=== PATIENT | female | born 1975 | race Caucasian/White ===

== ENCOUNTER 2016-11-18 16:17 | Observation (INO) | payer OTHER ==
[2016-11-18] MEDS ORDERED: FENTANYL 100 MCG/2 ML VIAL ONE (16:48)
[2016-11-18] MEDS ORDERED: KETOROLAC TROMETHAMINE 30 MG/ML VIAL ONE ×2 (16:53→19:58)
[2016-11-18] MEDS ORDERED: ONDANSETRON HCL 4 MG/2 ML VIAL ONE (16:54)
[2016-11-18] MEDS ORDERED: HOME MEDICATION LIST NEEDED 1 EA EACH MC ONE (17:44)
[2016-11-18] MEDS ORDERED: ONDANSETRON HCL 4 MG/2 ML VIAL IV PRN (17:48)
[2016-11-18] MEDS ORDERED: METHYLPREDNISOLONE SOD 125 MG/2 ML VIAL ONE (17:52)
[2016-11-18] MEDS ORDERED: NORMAL SALINE 100 ML IV ONE (17:53)
--- NOTE | 2016-11-18 19:34 | ER NURSING DOCUMENTATION ---
Nurse's Notes [facility] Name:Anika Arcos Age:41 yrs Sex:Female :1975 Arrival Date:11/18/2016 Time:16:17 Bed6 Private MD: Diagnosis:Lumbar Radiculopathy-: L-5 / S-1 Level;Lower Extremity Pain;Dehydration Presentation: 11/18 16:24 Presenting complaint: Patient states: Pt is here visiting from [place] and over did it rh with the activity this weekend - hiking. Pt aggravated her herniated discs and know has sharp pain shooting down the right leg and numbness. Transition of care: Home. 16:24 Acuity: MARTHA 3 rh 16:24 Method Of Arrival: EMS: 400 rh 16:35 Care prior to arrival: IV initiated. gauge and site 20 G IN THE LEFT HAND Medication(s) rh given: Fentanyl 100MCG. Triage Assessment: 16:32 General: Appears in no apparent distress, Behavior is cooperative. Pain: Complains of rh pain in lumbar area and right leg. EENT: Oral mucosa is dry. Neuro: Level of Consciousness is awake, alert, obeys commands, Oriented to person, place, time, event. Cardiovascular: Capillary refill < 3 seconds Chest pain is denied. Respiratory: Airway is patent. GI: Abdomen is non- distended Denies nausea. : No deficits noted. Derm: Skin is intact, is healthy with good turgor, Skin is pink, warm & dry. Musculoskeletal: Circulation, motion, and sensation intact Capillary refill < 3 seconds Reports numbness in right leg. Historical: - Allergies: No known drug Allergies; - Home Meds: 1. gabapentin 300 mg oral cap 1 cap twice daily 2. verapamil 100 mg oral CPCT 1 cap once daily at bedtime 3. losartan 100 mg oral tab 1 tab once daily 4. methocarbamol 500 mg oral tab 2 tabs 3 times per day 5. tizanidine 2 mg oral tab 2 tabs every 6-8 hours as needed not to exceed 3 doses in 24 hours 6. acetaminophen-codeine 300-30 mg oral tab 1 tab every 6 hours as needed 7. Methylprednisolone Oral - PMHx: CAROTID ANUERISM; L5-S1 HERNIATED DISC; - PSHx: None; - Tetanus: < 10 years. - Ebola Screening: : Patient negative for fever greater than or equal to 101.5 degrees Fahrenheit, and additional compatible Ebola Virus Disease symptoms. - Immunization history: Flu Vaccine < 1 year. - Social history: Smoking status: Patient states was never smoker of tobacco. Screenin:34 Infectious Disease Risk None. Abuse screen: Denies threats or abuse. Denies injuries rh from another. Nutritional screening: No deficits noted. Assessment: 16:34 See Triage Assessment done by same RN. rh 17:30 Reassessment: Patient states feeling better. Patient states symptoms have improved. lc REPOSITIONED IN BED, NO C/O, VSS, RESTING COMFORTABLY.. 17:50 Reassessment: DECISION MADE FOR ADMIT, DINNER ORDERED, WAITING FOR ROOM ASSIGNMENT. Vital Signs: 16:33 BP 116 / 79; Pulse 70; Resp 15; Temp 97.9(O); Pulse Ox 88% on R/A; Weight 70.31 kg; rh Height 5 ft. 6 in. (167.64 cm); Pain 5/10; 16:34 Pulse 68; Resp 15; Pulse Ox 96% on 2 lpm NC; rh 17:15 Pulse 52; Resp 16; Pulse Ox 96% ; Pain 1/10; lc 17:49 BP 134 / 59; Pulse 68; Resp 16; Pulse Ox 93% ; Pain 2/10; lc 16:33 Body Mass Index 25.02 (70.31 kg, 167.64 cm) rh [place] Coma Score: 16:45 Eye Response: spontaneous(4). Verbal Response: oriented(5). Motor Response: obeys cd commands(6). Total: 15. ED Course: 16:18 Patient arrived in ED. cj 16:24 Sabrina Borja is Primary Nurse. rh 16:25 Notified ED Physician of patient's arrival and chief complaint. Dr. Gilmore notified. rh 16:27 Triage completed. rh 16:34 [address] pack to injury. st 16:34 Valuables Remains with patient Patient has correct armband on for positive rh identification. Bed in low position. Call light in reach. Side rails up X 1. Family accompanied patient. 16:34 Maintain field IV. Site clean & dry. Gauge & site: 20 G IN THE LEFT HAND. rh 16:35 Oxygen Oxygen administration via nasal cannula @ 2L/min. rh 16:42 Musa Gilmore MD is Attending Physician. cd 17:38 Winnie Hamilton MD is Admitting Physician. cd Administered Medications: 16:45 Drug: Zofran 4 mg; Route: IVP; Infused Over: 2 mins; Site: left hand; rh 19:30 Follow up: Response: Nausea is decreased lc 16:49 Drug: NS 0.9% 1000 ml; Route: IV; Rate: bolus; Site: left hand; rh 19:30 Follow up: IV Status: Completed infusion; IV Intake: 1000ml lc 16:49 Drug: Toradol 30 mg; Route: IVP; Site: left hand; rh 19:31 Follow up: Response: Nausea is decreased lc 16:50 Drug: Dilaudid 0.5 mg; Route: IVP; Site: left hand; rh 19:31 Follow up: Response: Pain is decreased lc 17:46 Drug: Solu-MEDROL 125 mg; Route: IVP; Rate: bolus; Infused Over: 15 mins; Site: left lc hand; 19:32 Follow up: Response: No adverse reaction lc Intake: 19:30 IV: 1000ml; Total: 1000ml. lc Outcome: 17:39 Decision to Admit by Provider. cd 19:30 Admitted to Med/surg accompanied by nurse, via stretcher, with oxygen, with chart. rh 19:30 Condition: stable 19:30 Instructed on need to admit 19:33 Patient left the ED. lc Signatures: Deb Lomeli, Loree Price RN, RN RN lc Daley, Chris, MD MD cd Hofsess, Rachel Ashwini Gonzalez
--- NOTE | 2016-11-18 19:34 | ER PHYSICIAN DOCUMENTATION ---
Physician Documentation [facility] Name:Anika rAcos Age:41 yrs Sex:Female :1975 Arrival Date:11/18/2016 Time:16:17 Bed6 Private MD: Musa Godinez Disposition: 11/18 17:45 Chart complete. cd Disposition: 11/18/16 17:39 Admit ordered for Winnie Hamilton. Preliminary diagnosis are Lumbar Radiculopathy - : L-5 / S-1 Level, Lower Extremity Pain, Dehydration. - Bed requested for Medical/Surgical. - Condition is Fair. - Problem is an acute exacerbation. - Symptoms have improved. 23 HR OBS Yes HPI: 16:30 This 41 yrs old Female presents to ER via EMS with complaints of Back Pain cd radiating down right leg with numbness.. 16:30 The patient presents with pain that is acute, and decreased range of motion. The cd symptoms are located in the lumbar area and right leg. Onset: The symptoms/episode began/occurred acutely, 2 day(s) ago. The pain radiates down the patient's right lower extremity. Associated signs and symptoms: Pertinent positives: numbness, tingling, Pertinent negatives: abdominal pain, chest pain, dysuria, fever, incontinence, urinary retention, vomiting, weakness. The problem was sustained at home, from a chronic condition, the patient has known disc disease, the patient has a L-5 / S1 Disc extrusion, as well as L-4 / L-5 Disc disease. She has had MRI's and is planning on surgery when she returns home to [place]. The patient reports that on Friday that walked around [place], then went to [facility]. She had a good time, but by the next day she knew she had overdone things. The patient had increasing pain in her low back and radiating into her right leg like she had had before. On Friday her [place] Physician called in a Medrol Dose pack for her. She has taken the first two days of a 6 day pack. She has also been taking Ibuprofen for pain, Gabapentin and Tylenol # 3 for pain.. Severity of symptoms: At their worst the symptoms were severe, in the emergency department the symptoms are unchanged. The risk factors for a herniated disc include: The patient has a history of a herniated disc in the past. The patient has experienced similar episodes in the past, and the symptoms today are exactly the same. Historical: - Allergies: No known drug Allergies; - Home Meds: 1. gabapentin 300 mg oral cap 1 cap twice daily 2. verapamil 100 mg oral CPCT 1 cap once daily at bedtime 3. losartan 100 mg oral tab 1 tab once daily 4. methocarbamol 500 mg oral tab 2 tabs 3 times per day 5. tizanidine 2 mg oral tab 2 tabs every 6-8 hours as needed not to exceed 3 doses in 24 hours 6. acetaminophen-codeine 300-30 mg oral tab 1 tab every 6 hours as needed 7. Methylprednisolone Oral - PMHx: CAROTID ANUERISM; L5-S1 HERNIATED DISC; - PSHx: None; - Tetanus: < 10 years. - Ebola Screening: : Patient negative for fever greater than or equal to 101.5 degrees Fahrenheit, and additional compatible Ebola Virus Disease symptoms. - Immunization history: Flu Vaccine < 1 year. - Social history: Smoking status: Patient states was never smoker of tobacco. ROS: 16:30 ENT: Negative for injury, pain, epistaxis and discharge. cd Neck: Negative for injury, pain, stiffness and swelling. Cardiovascular: Negative for chest pain, palpitations, edema and pleuritic pain. Respiratory: Negative for shortness of breath, dyspnea on exertion, cough, sputum production, wheezing, hemoptysis and pleuritic chest pain. Abdomen/GI: Negative for abdominal pain, nausea, vomiting, diarrhea, constipation, distension, melena, hematochezia and hematemesis. : Negative for injury, bleeding, discharge, dysuria, frequency, urgency and swelling. 16:30 Skin: Negative for injury, rash, itching and discoloration. cd 16:30 Constitutional: Positive for poor PO intake, Negative for chills, fever. 16:30 Back: Positive for decreased range of motion, pain at rest, pain with movement, of the lumbar area. 16:30 MS/extremity: Positive for pain, tingling, of the right leg. 16:30 Neuro: Positive for numbness, tingling, Negative for altered mental status, dizziness, headache, loss of consciousness, seizure activity, speech changes, syncope, visual changes. 16:30 All other systems are negative. Exam: Head/Face: Normocephalic, atraumatic. Eyes: Pupils equal round and reactive to light, extra-ocular motions intact. Lids and lashes normal. Conjunctiva and sclera are non-icteric and not injected. Cornea within normal limits. Periorbital areas with no swelling, redness, or edema. ENT: Nares patent. No nasal discharge, no septal abnormalities noted. Tympanic membranes are normal and external auditory canals are clear. Oropharynx with no redness, swelling, or masses, exudates, or evidence of obstruction, uvula midline. Mucous membranes moist. Neck: Trachea midline, no thyromegaly or masses palpated, and no cervical lymphadenopathy. Supple, full range of motion without nuchal rigidity, or vertebral point tenderness. No Meningismus. Chest/axilla: Normal chest wall appearance and motion. Nontender with no deformity. No lesions are appreciated. Cardiovascular: Regular rate and rhythm with a normal S1 and S2. No gallops, murmurs, or rubs. Normal PMI, no JVD. No pulse deficits. Respiratory: Lungs have equal breath sounds bilaterally, clear to auscultation and percussion. No rales, rhonchi or wheezes noted. No increased work of breathing, no retractions or nasal flaring. 16:45 Abdomen/GI: Soft, non-tender, with normal bowel sounds. No distension or tympany. No cd guarding or rebound. No evidence of tenderness throughout. 16:45 Constitutional: The patient appears alert, awake, non-diaphoretic, non-toxic, well developed, well nourished, anxious, in obvious distress, severely distressed. 16:45 Back: pain, that is severe, of the lumbar area, ROM is painful, decreased, normal spinal alignment noted, CVA tenderness, is absent, vertebral tenderness, is appreciated at L4, L5 and sacrum, Straight leg raises: right lower extremity illicits pain, at 15 degrees. 16:45 : CVA tenderness, noted bilaterally, Rectal exam: is not applicable. 16:45 Musculoskeletal/extremity: ROM: limited passive range of motion due to pain, in the right leg, Circulation is intact in all extremities. Sensation intact. 16:45 Skin: Exam negative for acute changes. 16:45 Neuro: Orientation: is normal, Mentation: is normal, Memory: is normal, Cranial nerves: CN II- XII are normal as tested, Motor: moves all fours, Sensation: numbness, that is mild, of the right ankle and lateral aspect of right foot, tingling, that is moderate, Gait: not tested. Vital Signs: 16:33 BP 116 / 79; Pulse 70; Resp 15; Temp 97.9(O); Pulse Ox 88% on R/A; Weight 70.31 kg; rh Height 5 ft. 6 in. (167.64 cm); Pain 5/10; 16:34 Pulse 68; Resp 15; Pulse Ox 96% on 2 lpm NC; rh 17:15 Pulse 52; Resp 16; Pulse Ox 96% ; Pain 1/10; lc 17:49 BP 134 / 59; Pulse 68; Resp 16; Pulse Ox 93% ; Pain 2/10; lc 16:33 Body Mass Index 25.02 (70.31 kg, 167.64 cm) rh [place]i Coma Score: 16:45 Eye Response: spontaneous(4). Verbal Response: oriented(5). Motor Response: obeys cd commands(6). Total: 15. MDM: 16:25 Data interpreted: Pulse oximetry: on room air is 93 %. Interpretation: normal. cd 16:36 Data reviewed: vital signs, nurses notes, old medical records, and as a result, I will cd admit patient, administer IV fluids, NS bolus, NS maintenence, prescribe pain medication, Dilaudid, Toradol. 16:42 Patient medically screened. cd 16:50 Differential diagnosis: ruptured disc, sprain, Lumbar Radiculopathy. cd 17:10 Response to treatment: the patient's symptoms have markedly improved after treatment, cd the patient's condition has returned to base line, and as a result, I will admit patient. Physician consultation: Winnie Hamilton MD was called at 17:10, was contacted at 17:20, regarding admission, to the floor, consult, patient's condition, need to come to ED to see patient, need to evaluate the patient as soon as possible, and will see patient in ED, shortly. Admission orders: after a detailed discussion of the patient's condition and case, the admit orders are written by me. 17:30 Counseling: I had a detailed discussion with the patient and/or guardian regarding: the cd historical points, exam findings, and any diagnostic results supporting the discharge/admit diagnosis, the need for further work-up and treatment in the hospital, risk of leaving the Emergency Department. 11/19 06:40 Order name: BASIC METABOLIC PANEL [facility] 11/19 10:03 Order name: CBC W/ MANUAL DIFFERENTIAL [facility] 11/19 12:04 Order name: HEPATIC PANEL [facility] 11/19 14:14 Order name: UA W/ MICRO -CULTURE IF IND [facility] 11/19 13:48 Order name: LUMBAR SPINE W/O [id number] [facility] 11/19 15:46 Order name: CXR 2V [id number] [facility] 11/18 16:35 Order name: Oxygen; Complete Time: 16:35 rh 11/18 16:35 Order name: ORTHO: Ice Pack; Complete Time: 16:35 rh Dispensed Medications: 16:45 Drug: Zofran 4 mg; Route: IVP; Infused Over: 2 mins; Site: left hand; rh 19:30 Follow up: Response: Nausea is decreased lc 16:49 Drug: NS 0.9% 1000 ml; Route: IV; Rate: bolus; Site: left hand; rh 19:30 Follow up: IV Status: Completed infusion; IV Intake: 1000ml lc 16:49 Drug: Toradol 30 mg; Route: IVP; Site: left hand; rh 19:31 Follow up: Response: Nausea is decreased lc 16:50 Drug: Dilaudid 0.5 mg; Route: IVP; Site: left hand; rh 19:31 Follow up: Response: Pain is decreased lc 17:46 Drug: Solu-MEDROL 125 mg; Route: IVP; Rate: bolus; Infused Over: 15 mins; Site: left hand; 19:32 Follow up: Response: No adverse reaction lc Signatures: Loree Kohler RN RN Musa Gill MD MD cd Hofsess, Rachel
[2016-11-18] MEDS ORDERED: METHYLPREDNISOLONE SOD 125 MG/2 ML VIAL IV SCH ×2 (20:00→23:50)
[2016-11-18] MEDS ORDERED: VERAPAMIL HCL ER 120 MG TABLET PO SCH (21:35)
[2016-11-18] MEDS ORDERED: GABAPENTIN 300 MG CAPSULE PO SCH (22:00)
[2016-11-18] MEDS: NORMAL SALINE 1,000 ML IV SCH (22:26)
[2016-11-18] MEDS: KETOROLAC TROMETHAMINE 30 MG/ML VIAL IV PRN (22:31)
[2016-11-18] MEDS: METHYLPREDNISOLONE SOD 125 MG/2 ML VIAL IV SCH (23:13)
--- NOTE | 2016-11-19 05:44 | HISTORY & PHYSICAL ---
DATE OF ADMISSION: 11/18/16 CHIEF COMPLAINT: Low back pain. HISTORY OF PRESENT ILLNESS: This is a 41-year-old white female visiting from [place] with known L5-S1 disk herniation, who injured her back this past weekend with walking up and down stairs at [facility]. She awoke the next morning with severe pain. No specific injury or fall other than walking. Her pain had been progressively getting better after the initial herniation in August 2016. She had been going through physical therapy and her pain was managed very well until over- doing it several days ago. She says that the morning after the concert she was only able to get out of bed to go to the bathroom. She states the pain originates at her right iliac crest and radiates to her right lateral hip. The pain essentially skips the thigh and then begins again at her right mid calf and it radiates to her right lateral ankle and right foot. She states that it feels like her ankle is breaking and is being squeezed very tightly. The pain is positional. She is most comfortable when she is mostly flat on her back with her legs elevated. Pain is described as sharp. She has a sensation of her leg as being hot with tingling and numbness. Apparently, her current symptoms are identical to when she had her original herniation in August. She is not having any symptoms on the left side. She has had 2 steroid lumbar epidurals from a pain specialist with some minimal relief. REVIEW OF SYSTEMS: The herniation at L5-S1 occurred on 09/14/2016. No recent fevers, chills or sweats. No URI symptoms. No cough. No runny nose, no sore throat. No chest pain, no shortness of breath. No palpitations. No abdominal pain. No nausea or vomiting. No dysuria. No hematuria. PAST MEDICAL HISTORY 1. 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 2. Hypertension. 3. Migraines. 4. Basal cell carcinoma of her nose. PAST SURGICAL HISTORY: Removal of the basal cell carcinoma from her nose. MEDICATIONS Verapamil ER 100 mg at night. Losartan 100 mg daily. Maxalt as needed for migraines. Medrol dose pack which she has been taking as prescribed by her primary care provider in [place] for the past 2 days. Neurontin 300 mg 4 times daily. Methocarbamol 500 mg 2 tablets 3 times daily. Tizanidine 1 tablet twice daily. Motrin 800 mg 2 times daily. Acetaminophen codeine #3 one tablet every 8 hours as needed for pain. FAMILY HISTORY: Mom is 72, has history of hypertension. Dad 71, also with history of hypertension. Three sisters, one sister who from Prader-Carson syndrome. Two other sisters healthy. Brother also has a cerebral aneurysm. SOCIAL HISTORY: She lives in [place]. She is . She has 2 daughters. No tobacco use. No alcohol use. Former ICU nurse. She is currently unemployed secondary to her low back pain. DATA: None. EMERGENCY ROOM COURSE: Zofran 4 mg IV, normal saline 1 liter IV bolus, Toradol 30 mg IV, Dilaudid 0.5 mg IV, Solu-Medrol 125 mg IV. PHYSICAL EXAMINATION VITAL SIGNS: In the emergency room temperature 97.9, respiratory rate 15, pulse 70, blood pressure 116/79, 88% on room air. Her weight is 70.31 kg, height 5 feet 6 inches, 96% on 2 liters. Her current vital signs: Temperature 36.7, blood pressure 127/83, pulse is 55, respiratory rate 20, 95% on 1 liter. GENERAL: This is a very pleasant female who is lying down in bed, no apparent distress. HEENT: Her sclerae are clear. Her TMs are clear. Her nares are clear. Her oropharynx is clear. NECK: Supple. No carotid bruits. No lymphadenopathy. No jugular venous distention. LUNGS: Good aeration throughout and clear anteriorly and laterally. I did not sit the patient up secondary to discomfort to listen to her lungs posteriorly. HEART: Regular rate and rhythm, bradycardic, without any murmurs, rubs or gallops. ABDOMEN: Soft, nontender, nondistended with good bowel sounds and no hepatosplenomegaly. EXTREMITIES: Warm with no clubbing, cyanosis or edema. She has good peripheral pulses. BACK: Not palpated. She has some discomfort with testing of the right lower extremity. NEUROLOGIC: Alert and oriented x3. Cranial nerves 2-12 are grossly intact without focal deficits. Her motor sensation and DTRs are intact. Her strength is 5+/5+ throughout. DTRs are 2+/4+ throughout. I was unable to get the patient up to do gait testing. ASSESSMENT: This is a 41-year-old female with known history of L5-S1 disk herniation who presents for pain control. PLAN 1. Fluids, electrolytes and nutrition. Laboratories are not checked. Will check laboratories in the morning. She is on IV fluids. Regular diet. Antinausea medication. 2. Musculoskeletal. The patient will be provided pain control with Dilaudid as needed, toradol as needed, scheduled methylprednisolone. 3. Cardiovascular. The patient with history of hypertension. Her blood pressure has been stable. Continue her medications. 4. Neurology. The patient with history of migraines. She is not currently having a headache. Will use Triptan as needed. Will continue the patients chronic Neurontin. 5. Disposition. Full core, full tube. Anticipate discharge tomorrow. MTDD
[2016-11-19] MEDS: KETOROLAC TROMETHAMINE 30 MG/ML VIAL IV PRN (06:27)
[2016-11-19] MEDS: METHYLPREDNISOLONE SOD 125 MG/2 ML VIAL IV SCH ×2 (06:27→11:03)
[2016-11-19 06:34] LABS: BLOOD UREA NITROGEN 11 mg/dL (7-17); CALCIUM 9.1 mg/dL (8.4-10.2); CHLORIDE 107 mmol/L (98-107); EST GLOMERULAR FILTRATION RATE > 60 mL/min; GLUCOSE 142 mg/dL (70-100); POTASSIUM 4.3 mmol/L (3.5-5.1); SODIUM 140 mmol/L (137-145)
[2016-11-19] MEDS: NORMAL SALINE 1,000 ML IV SCH (06:55)
[2016-11-19] MEDS ORDERED: LORazepam 2 MG/ML INJ IV PRN ×2 (07:07→11:35)
[2016-11-19] MEDS ORDERED: LORazepam 2 MG/ML INJ ONE (07:32)
--- NOTE | 2016-11-19 08:57 | PROGRESS NOTE: IM SOAP ---
IM: PN Subjective General: no fever, no chills HEENT: no headache Cardiovascular: no chest pain, no chest pressure, no dizziness Respiratory: no cough, no SOB Gastrointestinal: no abdominal pain, no nausea, no vomiting Musculoskeletal: pain (Minimal improvement in R LBP, but still with spasms. ), weakness Neurological: numbness (RLE with spasms.), tingling IM: PN Objective Exam - I&O/Vital Signs I&O: Intake & Output 11/18/16 11/19/16 11/19/16 21:59 05:59 13:59 Intake Total 1400 Output Total 630 Balance 770 Weight 70.307 kg 75.75 kg Intake: IV 950 Left Hand 950 Oral 450 Output: Urine 630 Other: Urine Appearance Clear Clear Sediment Sediment Clots Urine Color Yellow Yellow Voiding Method Toilet Toilet # Voids 2 Vital Signs: Last Vital Signs Temp 36.6 C 11/19/16 06:34 Pulse 74 11/19/16 06:34 Resp 18 11/19/16 06:34 BP 145/74 11/19/16 06:34 Pulse Ox 93 11/19/16 06:34 Oxygen Flow Rate 2 Oxygen Delivery Method Nasal Cannula - Constitutional General appearance: Present: average body habitus, cooperative, mild distress - Head Head exam: Present: atraumatic, normal inspection, normocephalic - Eye Eye exam: Present: EOMI, PERRL - ENT ENT exam: Present: mucous membranes moist - Neck Neck exam: Present: full ROM. Absent: lymphadenopathy, meningismus, tenderness - Respiratory Respiratory exam: Present: clear. Absent: accessory muscle use - Cardiovascular Cardiovascular exam: Present: RRR, systolic murmur (New II/ c/w high output murmur. ). Absent: gallop, rubs - GI/Abdominal GI/Abdominal exam: Present: normal bowel sounds, soft. Absent: distended, organomegaly, tenderness - Extremities Exam Extremities exam: Present: calf tenderness (Right. ), normal inspection, tenderness (RLE. ). Absent: Jono's Sign, edema - Back Exam Back exam: Present: paraspinal tenderness (Right.), vertebral tenderness (Right L%-S1 area.) - Neurological Exam Neurological exam: Present: alert, oriented X3, other (Intermittent spasms of RLE.) - Psychiatric Psychiatric exam: Present: normal affect, normal mood - Skin Skin exam: Absent: rash - Allied Health Notes Allied health notes reviewed: nursing - Lab Labs: Laboratory Last Values Sodium 140 mmol/L (137-145) 11/19/16 05:00 Potassium 4.3 mmol/L (3.5-5.1) 11/19/16 05:00 Chloride 107 mmol/L (98-107) 11/19/16 05:00 Carbon Dioxide 25 mmol/L (22-30) 11/19/16 05:00 BUN 11 mg/dL (7-17) 11/19/16 05:00 Creatinine 0.5 mg/dL (0.5-1.0) 11/19/16 05:00 GFR Calculation > 60 mL/min 11/19/16 05:00 Glucose 142 mg/dL (70-100) H 11/19/16 05:00 Calcium 9.1 mg/dL (8.4-10.2) 11/19/16 05:00 Assessment and Plan - Date of Encounter Date of Encounter: 11/19/16 (1) Degenerative Disc Disease, Lumbar Status: Acute Assessment and plan: Known L5-S1 ruptured disc. Admitted for pain contro. Fair pain control overnight. Ativan and Flexeril added. Dilaudid and gabapentin increased. Continue Solumedrol and Toradol. PT evaluation. Current Visit: Yes (2) Hypertension Status: Chronic Assessment and plan: BPs overall stable. Continue Losartan and Verapamil. Current Visit: Yes (3) Heart Murmur Status: Acute Assessment and plan: New. Follow. Check CBC. Current Visit: Yes - Time Spent With Patient Total time spent with greater than 50% in coordination of care (as documented) at patient's floor/unit and/or counseling patient: 16-24 minutes Estimated anticipated discharge: 1-2 days Quality Questions - VTE Prophylaxis Assessment VTE Present on Admission?: No Patient at risk for venous thromboembolism?: Yes VTE Risk Level: High Risk Pharmaceutical VTE prophylaxis contraindication reason: N/A- VTE prophylaxsis ordered Mechanical VTE prophylaxis contraindication reason: N/A- VTE prophylaxsis ordered
[2016-11-19] MEDS ORDERED: GABAPENTIN 300 MG CAPSULE PO SCH (09:00)
[2016-11-19] MEDS ORDERED: LOSARTAN POTASSIUM 50 MG TABLET PO SCH (09:00)
[2016-11-19] MEDS ORDERED: CYCLOBENZAPRINE HCL 10 MG TABLET PO SCH (09:00)
[2016-11-19 09:45] LABS: HEMATOCRIT 35.3 % (36.0-48.0); HEMOGLOBIN 12.3 g/dL (12.0-16.0); MEAN CELL VOLUME 97.4 fL (80.0-100.0); MEAN CORPUS. HGB CONCENTRATION 34.9 g/dL (32.0-36.0); MEAN PLATELET VOLUME 7.6 fL (7.4-10.4); PLATELET COUNT 363 X 10^3uL (130-440); RED BLOOD COUNT 3.62 X 10^6uL (4.20-6.10); RED CELL DISTRIBUTION WIDTH 12.3 % (11.5-14.5); WHITE BLOOD COUNT 9.6 X 10^3uL (3.9-10.7)
[2016-11-19 10:03] LABS: BAND% (Manual) 2 % (0.0-1.0); LYMPHOCYTE % (Manual) 8 % (20.0-40.0); NEUTROPHIL % (Manual) 88 % (54.0-75.0)
[2016-11-19 10:04] LABS: MONOCYTE % (Manual) 2 % (2.0-10.0); PLATELET ESTIMATE ADEQUATE
[2016-11-19 11:48] VITALS: O2SAT 91
[2016-11-19 12:03] LABS: ALBUMIN 4.1 g/dL (3.5-5.0); BILIRUBIN, TOTAL 0.4 mg/dL (0.2-1.3); TOTAL PROTEIN 7.2 g/dL (6.3-8.2)
--- NOTE | 2016-11-19 12:04 | DC SUMMARY: IM Note ---
Discharge Summary: IM/Peds Provider: Date of Admission: 11/18/16 Admitting Provider: LAVERN HECTOR MD Attending Provider: LAVERN HECTOR MD Discharging Provider: LAVERN HECTOR MD Primary Care Provider: Discharge Date: 11/19/16 Consults: 11/18/16 21:36 Pharmacy Consult [CONS] Routine Reason: Medication reconciliation. - Diagnosis (1) Degenerative Disc Disease, Lumbar Status: Acute (2) Hypertension Status: Chronic (3) Heart Murmur Status: Acute (4) Anemia Status: Acute Qualifiers: Anemia type: unspecified type Qualified Code(s): D64.9 - Anemia, unspecified - Time Spent with Patient Total time spent providing and/or coordinating discharge services: Time with patient DS: Greater than 30 minutes Discharge - Patient/Caregiver Discharge Instructions Activity Level: Bedrest and up to the bathroom with assistance. Diet: Regular. Overall discharge status: patient is not back to baseline Print Language: GUAMANIAN Disposition: [facility] Discharge Summary Data - Medication History Medication History: Home Medications Acetaminophen/Codeine 300/30Mg [Tylenol with Codeine #3*] 1 tab PO Q8H 11/19/16 Gabapentin [Neurontin*] 300 mg PO BID 11/19/16 Ibuprofen [Ibuprofen*] 600 mg PO TID PRN 11/19/16 Losartan Potassium [Cozaar*] 100 mg PO EVERY MORNING 11/19/16 Methocarbamol [Robaxin] 1,000 mg PO TID 11/19/16 Methylprednisolone [Medrol] 4 mg PO DIRECTED 11/19/16 Rizatriptan Benzoate [Rizatriptan] 10 mg PO DAILY 11/19/16 Tizanidine HCl 2 mg PO BID 11/19/16 Verapamil HCl [Verapamil ER Pm] 100 mg PO BEDTIME (DAILY) 11/19/16 Inpatient Medications 11/18/16 21:35 Verapamil HCl ER [Isoptin-Sr] 120 mg PO HS 11/19/16 00:00 Methylprednisolone Sod [Solu-Medrol] 125 mg IV Q6H 11/19/16 09:00 Cyclobenzaprine HCl [Flexeril] 10 mg PO TID Gabapentin [Neurontin] 300 mg PO QID Losartan Potassium [Cozaar] 100 mg PO DAILY 11/19/16 11:34 hydroMORPHone HCL [dilaUDID] 1 mg IV Q1H PRN 11/19/16 11:35 LORazepam [Ativan] 0.5 mg IV Q2H PRN Procedures and tests throughout hospitalization: Completed Lab Orders 11/19/16 09:34 CBC W/ MANUAL DIFFERENTIAL [HEM] Stat Pending Orders 11/18/16 21:35 Verapamil HCl ER [Isoptin-Sr] 120 mg PO HS 11/18/16 21:36 Pharmacy Consult [CONS] Routine 11/19/16 00:00 Methylprednisolone Sod [Solu-Medrol] 125 mg IV Q6H 11/19/16 08:52 Physical Therapy Eval and Treatment [PT] Routine 11/19/16 09:00 Cyclobenzaprine HCl [Flexeril] 10 mg PO TID Gabapentin [Neurontin] 300 mg PO QID Losartan Potassium [Cozaar] 100 mg PO DAILY 11/19/16 09:11 Activity: Ambulate with Assist TID Sequential Compression Device IN BED OR CHAIR MARLEEN Barbiethi . 11/19/16 09:12 Buff cap IV ONCE 11/19/16 11:34 hydroMORPHone HCL [dilaUDID] 1 mg IV Q1H PRN 11/19/16 11:35 LORazepam [Ativan] 0.5 mg IV Q2H PRN 11/19/16 11:49 HEPATIC PANEL [CHEM] Stat 11/19/16 11:53 urinalysis [UA W/ MICRO -CULTURE IF IND] [URINE] Stat 11/19/16 11:54 MRI [LUMBAR SPINE W/O 65348] [MRI] Stat Labs on day of discharge: Labs from last 24 hours 11/19/16 11/19/16 11/19/16 09:34 05:30 05:00 WBC 9.6 RBC 3.62 L Hgb 12.3 Hct 35.3 L MCV 97.4 MCH 34.0 MCHC 34.9 RDW 12.3 Plt Count 363 MPV 7.6 Total Counted 100 Neutrophils % (Manual) 88 H Band Neuts % (Manual) 2 H Lymphocytes % (Manual) 8 L Monocytes % (Manual) 2 Platelet Estimate Adequate Sodium 140 Potassium 4.3 Chloride 107 Carbon Dioxide 25 BUN 11 Creatinine 0.5 GFR Calculation > 60 Glucose 142 H Calcium 9.1 Total Bilirubin Pending Direct Bilirubin Pending AST Pending ALT Pending Alkaline Phosphatase Pending Total Protein Pending Albumin Pending - Impressions Anika is visiting from [place]. She has a known L5-S1 disc herniation per her report, we do not have records, She developed intractable low back pain from walking and was unable to get out of bed the next day. she was admitted for pain control. She initially responded well to the pain medications in the emergency room. However,on the morning after admission,she again had intractable pain. She has been treated with Dilaudid, Ativan, Solu-Medrol, Toradol, Flexeril, and gabapentin during her hospitalization. She worked with physical therapy and they were unable to find any position of comfort. The decision was then made to discuss with neurosurgeon, Dr. Tyler Aguirre. Dr. Aguirre has graciously accepted her care. She will be transferred to [facility] under the care of hospitalist, Dr. Duke Doshi. She will have an MRI of the lumbosacral spine s well as chest x-ray prior to her transfer. She has developed mild hypoxemia most likely related to sedation from medications. These results are pending. IM: Discharge Physical Exam - I&O/Vital Signs I&O: Intake & Output 11/18/16 11/19/16 11/19/16 21:59 05:59 13:59 Intake Total 1400 Output Total 630 Balance 770 Weight 70.307 kg 75.75 kg Intake: IV 950 Left Hand 950 Oral 450 Output: Urine 630 Other: Urine Appearance Clear Clear Sediment Sediment Clots Urine Color Yellow Yellow Voiding Method Toilet Toilet # Voids 2 Vital Signs: Last Vital Signs Temp 36.6 C 11/19/16 06:34 Pulse 74 11/19/16 06:34 Resp 18 11/19/16 06:34 BP 145/74 11/19/16 06:34 Pulse Ox 91 11/19/16 11:48 Oxygen Flow Rate 0.5 Oxygen Delivery Method Nasal Cannula - Constitutional General appearance: Present: average body habitus, cooperative, acute distress ( She is in now in severe pain and is tearful.) - Head Head exam: Present: atraumatic, normal inspection, normocephalic - Eye Eye exam: Present: EOMI, PERRL - ENT ENT exam: Present: mucous membranes moist - Neck Neck exam: Present: full ROM. Absent: lymphadenopathy, meningismus, tenderness - Respiratory Respiratory exam: Present: clear. Absent: accessory muscle use - Cardiovascular Cardiovascular exam: Present: RRR, systolic murmur (New II/ c/w high output murmur. ). Absent: gallop, rubs - GI/Abdominal GI/Abdominal exam: Present: normal bowel sounds, soft. Absent: distended, organomegaly, tenderness - Extremities Exam Extremities exam: Present: calf tenderness (Right. ), normal inspection, tenderness (RLE. ). Absent: Jono's Sign, edema - Back Exam Back exam: Present: paraspinal tenderness (Right.), vertebral tenderness (Right L%-S1 area.) - Neurological Exam Neurological exam: Present: alert, oriented X3, other (Intermittent spasms of RLE.) - Psychiatric Psychiatric exam: Present: normal affect, normal mood - Skin Skin exam: Absent: rash - Allied Health Notes Allied health notes reviewed: nursing, PT (I have spoken at length with all of the nursing staff and physical therapist.), RT
[2016-11-19 12:28] VITALS: BP 144/107; PULSE 77; RESP 16; TEMP 98.8
--- NOTE | 2016-11-19 13:46 | MRI REPORT ---
HISTORY: Low back pain, sciatic pain, prior discectomy COMPARISON: None. TECHNIQUE: Multiplanar multi sequential imaging of the lumbar spine obtained without IV gadolinium. FINDINGS: The bone marrow signal is benign. There is no listhesis or pars defects seen. The distal spinal cord is normal with the conus terminating at the level of L1. The cauda equina nerv e roots appear normal without clubbing or nodularity. Sacroiliac joints appear intact. T11-T12 and T12-L1: Normal L1-L2: Normal L2-L3: Normal L3-L4: Mild desiccation of the disc with a small left foraminal protrusion, minimal contact of the ex iting left L3 nerve with mild left foraminal narrowing. No nerve compression seen. No spinal or right foraminal narrowing seen. L4-L5: Desiccation and mild height loss of the disc. Disc bulge with a central protrusion and promine nt posterior annular fissure, sagittal images 9, no substantial spinal stenosis with mild left-sided foraminal stenosis. No right foraminal narrowing seen. L5-S1: There is desiccation mild height loss of the disc. In the ventral epidural space to the right of midline, subarticular region, there is a ventral epidural mass which appears contiguous with the L 5-S1 disc on series 5 image 17 measuring over a craniocaudal dimension of 2.2 cm with transverse dime nsion on series 9 image 30 measuring 1.4 cm and AP dimension measuring 9 mm. This appears most compat ible with a large cephalad disc extrusion from the L5-S1 level. This is not definitely sequestered. T here is right subarticular recess narrowing with thecal sac deformity and contact/displacement of the descending right S1 nerve. Mild spinal stenosis is seen. There is also contact and displacement of t he exiting right L5 nerve. Mild left foraminal stenosis with moderate right foraminal stenosis. IMPRESSION: 1. 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 Mild spinal stenosis is seen w ith moderate right foraminal stenosis at this level. 2. Otherwise mild degenerative changes of the lumbar spine with a central protrusion and prominent po sterior annular fissure at the level of L4-L5. No more than mild spinal stenosis and mild foraminal s tenosis at any level. Final Electronic Signature: This report was electronically signed by Zhang Reyes MD on 11/19/2016 1:44 PM. vito /
[2016-11-19 14:13] LABS: URINE APPEARANCE CLEAR; URINE BACTERIA NONE SEEN (<10/hpf); URINE BILIRUBIN NEGATIVE (NEGATIVE); URINE BLOOD 50 Ery/uL (2+) (NEGATIVE); URINE COLOR YELLOW; URINE GLUCOSE NORMAL (NEGATIVE); URINE KETONE NEGATIVE (NEGATIVE); URINE LEUKOCYTE ESTERASE NEGATIVE (NEGATIVE); URINE MUCUS NONE SEEN (Up to 25%); URINE NITRITE NEGATIVE (NEGATIVE); URINE PROTEIN NEGATIVE (NEG - TRACE); URINE RBC 0-5/hpf (0-5/hpf); URINE UROBILINOGEN 0.2mg/dL (Normal) (NEG-1mg/dL); URINE WBC 0-4/hpf (0-4/hpf)
--- NOTE | 2016-11-19 14:22 | RADIOLOGY REPORT ---
Two views of the chest, without prior films for comparison, demonstrate the cardiac silhouette to be enlarged. The pulmonary vasculature is unremarkable. The lung cottrell are clear. No infiltrate, fluid or pneumothorax is seen. IMPRESSION: Mild enlargement of the cardiac silhouette. MTDD
[2016-11-19] MEDS ORDERED: FENTANYL 100 MCG/2 ML VIAL ONE (16:38)
== END 2016-11-19 13:25 | disposition short-term general hospital (02) ==
LOC: ER 16:17 → EDBD 16:17 → IN 19:18
PROVIDERS: ADMIT Family Medicine; ATTEND Family Medicine
DX: M51.36 Other intervertebral disc degeneration, lumbar region (principal); I10 Essential (primary) hypertension; R01.1 Cardiac murmur, unspecified; D64.9 Anemia, unspecified; G43.909 Migraine, unspecified, not intractable, without status migrainosus; Z85.828 Personal history of other malignant neoplasm of skin; I72.0 Aneurysm of carotid artery
CPT/HCPCS: 36415; 71020; 72148; 80048; 80076; 81001; 85007; 85027; 96361; 96374; 96375; 96376; 99285; A0425; A0427; G0378; J1170; J1885; J2060; J2405; J2930; J3010; J7030